=== PATIENT | male | born 1950 | race Caucasian/White ===

== ENCOUNTER → 2024-04-28 08:54 | Outpatient (REF) | payer OTHER, SELFPAY | LOC: HWRAD 08:54 | PROVIDERS: ATTENDING PHYSICIAN Internal Medicine Cardiovascular Disease; FAMILY PHYSICIAN Family Medicine | DX: R09.89 Other specified symptoms and signs involving the circulatory and respiratory systems (principal) | CPT/HCPCS: 93880 ==

== ENCOUNTER → 2025-02-04 09:55 | Outpatient (REF) | payer OTHER, SELFPAY | LOC: HWRAD 09:55 | PROVIDERS: ATTENDING PHYSICIAN Family Medicine | DX: R51.9 Headache, unspecified (principal) | CPT/HCPCS: 70450 ==